=== PATIENT | female | born 1945 | race Caucasian/White ===

== ENCOUNTER 2020-09-27 14:17 | Emergency (ER) | payer MEDICARE, OTHER ==
[2020-09-27] MEDS ORDERED: Ondansetron 4 MG Tab.DIS PO ONE (14:18)
[2020-09-27] MEDS ORDERED: Acetaminophen/oxyCODONE 325-5 MG Tab PO ONE (14:18)
[2020-09-27] MEDS ORDERED: Ketorolac 30 MG/ML SDV IVPUSH ONE (14:20)
[2020-09-27] MEDS ORDERED: HYDROmorphone 2 MG/ML SDV IVPUSH ONE ×2 (14:20→15:28)
[2020-09-27] MEDS ORDERED: Ondansetron 4 MG/2 ML SDV IVPUSH ONE (14:20)
--- NOTE | 2020-09-27 14:26 | EDM.PDOC ---
ED HPI GENERAL MEDICAL PROBLEM - General Stated Complaint: ??? Time Seen by Provider: 09/27/20 14:20 Source of Information: Reports: Patient History Limitations: Reports: No Limitations - History of Present Illness INITIAL COMMENTS - FREE TEXT/NARRATIVE: c/o R sciatic pain pain at R buttock laterally down to R ankle, sharp, excruciating, not had previous no injury, no fall slept well, onset 6:30a, woke her up, ibuprofen x 2 did not help, getting worse, called EMS lives alone, drives and walks independently no prior h/o back problems, no prior ED visits no f/c/d wincing in pain Right Lower Buttock Pain Score (Numeric/FACES): 10 - Related Data Allergies Allergy/AdvReac Type Severity Reaction Status Date / Time No Known Allergies Allergy Verified 09/27/20 14:22 Home Meds: Home Meds Gabapentin [Neurontin] 100 mg PO BID #20 cap 09/27/20 [Rx] Ondansetron [Ondansetron ODT] 4 mg PO Q6H PRN #8 tab.rapdis 09/27/20 [Rx] oxyCODONE HCl/Acetaminophen [Oxycodone-Acetaminophen 5-325] 1 each PO Q6H #6 tablet 09/27/20 [Rx] Review of Systems - Review of Systems Review Of Systems: See Below Constitutional: Reports: No Symptoms Eyes: Reports: No Symptoms Ears: Reports: No Symptoms Nose: Reports: No Symptoms Mouth/Throat: Reports: No Symptoms Respiratory: Reports: No Symptoms Cardiovascular: Reports: No Symptoms GI/Abdominal: Reports: No Symptoms Genitourinary: Reports: No Symptoms Musculoskeletal: Reports: Leg Pain Skin: Reports: No Symptoms Neurological: Reports: No Symptoms Psychiatric: Reports: No Symptoms ED EXAM, GENERAL - Physical Exam Exam: See Below Exam Limited By: No Limitations General Appearance: Alert, WD/WN, Moderate Distress Throat/Mouth: Normal Voice, No Airway Compromise Head: Atraumatic Neck: Normal Inspection Respiratory/Chest: No Respiratory Distress Cardiovascular: Regular Rate, Rhythm GI/Abdominal: Soft Back Exam: Other (no spasm, NT at SI joint, NT along l-spine) Extremities: Other (great toe extention 5/5, ankle flex/ext b/l 5/5, not able to lift R foot off of bed d/t pain, L hip flex to 15 degrees causes severe pain in R buttock, LT intact b/l, 2+ DP pulse b/l) Neurological: Alert, Oriented, CN II-XII Intact, Normal Cognition, No Motor/Sensory Deficits Psychiatric: Normal Affect, Normal Mood Skin Exam: Warm, Dry, Intact, Normal Color, No Rash Lymphatic: No Adenopathy Course - Vital Signs Last Recorded V/S: Last Vital Signs Temp 36.8 C 09/27/20 14:17 Pulse 66 09/27/20 16:30 Resp 20 09/27/20 16:30 BP 100/56 L 09/27/20 16:30 Pulse Ox 94 L 09/27/20 16:30 - Orders/Labs/Meds Orders: Active Orders 24 hr Category Date Time Status Lumbar Spine wo Cont [CT] Stat Exams 09/27/20 14:21 Ordered Labs: Laboratory Tests 09/27/20 09/27/20 09/27/20 Range/Units 14:33 14:33 14:33 WBC 7.1 (3.0-10.3) x10-3/uL RBC 4.21 (3.60-5.20) x10(6)uL Hgb 12.9 (11.4-15.5) g/dL Hct 38.2 (34.2-48.2) % MCV 90.7 (76.7-100.5) fL MCH 30.6 (23.9-33.9) pg MCHC 33.7 (31.9-34.8) g/dL RDW 14.4 (12.3-16.5) % Plt Count 214 (151-488) x10(3)uL MPV 9.7 (7.1-12.4) fL Add Manual Diff Yes Neutrophils % (Manual) 87 H (46-82) % Lymphocytes % (Manual) 7 L (13-37) % Monocytes % (Manual) 6 (4-12) % Sodium 138 (135-145) mmol/L Potassium 4.1 (3.5-5.3) mmol/L Chloride 103 (100-110) mmol/L Carbon Dioxide 24 (21-32) mmol/L BUN 25 H (7-18) mg/dL Creatinine 1.1 H (0.55-1.02) mg/dL Est Cr Clr Drug Dosing 35.49 mL/min Estimated GFR (MDRD) 49 L (>60) BUN/Creatinine Ratio 22.7 H (9-20) Glucose 122 H (80-116) mg/dL Calcium 8.2 L (8.6-10.2) mg/dL Total Bilirubin 0.5 (0.1-1.3) mg/dL AST 21 (5-25) IU/L ALT 30 (12-36) U/L Alkaline Phosphatase 85 (56-112) IU/L C-Reactive Protein 0.3 L (0.5-0.9) mg/dL Total Protein 7.0 (6.0-8.0) g/dL Albumin 3.6 (3.2-4.6) g/dL Globulin 3.4 g/dL Albumin/Globulin Ratio 1.1 Meds: Medications Discontinued Medications Generic Name Dose Route Start Last Admin Trade Name Freq PRN Reason Stop Dose Admin Hydromorphone HCl 0.5 mg 09/27/20 14:20 09/27/20 14:59 Hydromorphone 2 Mg/Ml Sdv IVPUSH 09/27/20 14:21 0.5 mg ONETIME ONE Administration Hydromorphone HCl 0.5 mg 09/27/20 15:28 09/27/20 15:36 Hydromorphone 2 Mg/Ml Sdv IVPUSH 09/27/20 15:29 0.5 mg ONETIME ONE Administration Ketorolac Tromethamine 15 mg 09/27/20 14:20 09/27/20 14:42 Ketorolac 30 Mg/Ml Sdv IVPUSH 09/27/20 14:21 15 mg ONETIME ONE Administration Metoclopramide HCl 10 mg 09/27/20 16:48 Metoclopramide 10 Mg/2 Ml Sdv IVPUSH 09/27/20 16:49 ONETIME ONE Ondansetron HCl 4 mg 09/27/20 14:20 09/27/20 14:42 Ondansetron 4 Mg/2 Ml Sdv IVPUSH 09/27/20 14:21 4 mg ONETIME ONE Administration - Re-Assessments/Exams Free Text/Narrative Re-Assessment/Exam: 09/27/20 17:18 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, no bony encroachment appreciated may have disc impinging nerve pt did feel better after Toradol 15 mg IV and Dilaudid 0.5 mg IV x 2, however she had N as I was explaining her d/c plan and suddenly sat up and twisted to the side without limitation RN reported that could stand and move to w/c to go to CT without restriction of movement no spasm present, does appear to be nerve pain from lumbar radiculopathy, should do well with medical management 09/27/20 18:04 tx plan reviewed with pt, she is a little sleeping from Dilaudid, still with pain c/o without m/s or neuro compromise, will give Solu-Medrol 80 mg IV x 1 to perhaps decrease swell Departure - Departure Time of Disposition: 17:07 Disposition: Home, Self-Care 01 Condition: Good Clinical Impression: Sciatica Qualifiers: Laterality: right Qualified Code(s): M54.31 - Sciatica, right side - Discharge Information *PRESCRIPTION DRUG MONITORING PROGRAM REVIEWED*: Yes *COPY OF PRESCRIPTION DRUG MONITORING REPORT IN PATIENT JACKIE: Not Applicable Prescriptions: Gabapentin [Neurontin] 100 mg PO BID #20 cap Ondansetron [Ondansetron ODT] 4 mg PO Q6H PRN #8 tab.rapdis PRN Reason: Nausea oxyCODONE HCl/Acetaminophen [Oxycodone-Acetaminophen 5-325] 1 each PO Q6H #6 tablet Instructions: Sciatica Additional Instructions: For pain, take gabapentin 100 mg 1 tab 2 times a day for 7-10 days. For pain, take acetaminophen 500 mg 2 tabs 4 times a day. For pain, may substitute one acetaminophen with oxycodone with acetaminophen 5/325 mg 1 tab 4 times a day as needed. Do not take more than 8 tabs in 24 hours that contain acetaminophen. No alcohol. For nausea, take ondansetron ODT 4 mg 1 tab under the tongue every 6 hours as needed. As your kidney function is not the best, about 33% of expected, you will need to avoid NSAIDs such as ibuprofen or Aleve for now. Increase your fluids. Avoid bending or twisting or lifting. Sleep on a firm mattress. Use a 4-point walker for the next week to shift weight onto the arms and off of the back. If you feel worse or have pain at home that is not controlled with medications, return to Emergency Department. See your doctor in 2-3 days for further recommendations. Sepsis Event Note (ED) - Focused Exam Vital Signs: Vital Signs Temp Pulse Resp BP Pulse Ox 09/27/20 16:30 66 20 100/56 L 94 L 09/27/20 16:01 67 20 108/52 L 94 L 09/27/20 15:31 61 20 97/50 L 98 09/27/20 15:12 66 20 135/115 H 93 L 09/27/20 14:59 67 20 135/71 95 09/27/20 14:17 36.8 C 67 20 137/102 H 95 - My Orders Last 24 Hours: My Active Orders 09/27/20 14:21 Lumbar Spine wo Cont [CT] Stat - Assessment/Plan Last 24 Hours: My Active Orders 09/27/20 14:21 Lumbar Spine wo Cont [CT] Stat
[2020-09-27] MEDS ORDERED: Metoclopramide 10 MG/2 ML SDV IVPUSH ONE (16:48)
[2020-09-27] MEDS ORDERED: Gabapentin 100 MG Cap PO ONE (17:10)
[2020-09-27] MEDS ORDERED: methylPREDNISolone Sodium Succinate 40 MG/1 ML SDV IVPUSH ONE (18:03)
== END 2020-09-27 18:55 | disposition home or self-care (01) ==
LOC: MERGE 14:17 → FB.ED 14:17
DX: M54.41 Lumbago with sciatica, right side (principal)
CPT/HCPCS: 36415; 72131; 80053; 85025; 86140; 96374; 96375; 96376; 99284-25; A9270-GY; J1170; J1885; J2405; J2765; J2920